=== PATIENT | male | born 1950 | race Caucasian/White ===

== ENCOUNTER 2018-08-29 03:47 | Emergency (ER) | payer MEDICARE ==
[~2018-08-29] VITALS: Ht 172.7 cm; Wt 85.3 kg
[2018-08-29 03:50] VITALS: Ht 172.7 cm; Wt 85.3 kg
[2018-08-29 04:46] LABS: BASOPHIL % 0.5 % (0-2); PLATELET COUNT 161 x10^3mcL (130-400); RED CELL DISTRIBUTION WIDTH 12.8 % (11.5-14.5)
[2018-08-29 04:54] LABS: CALCIUM 9.8 mg/dL (8.5-10.1); CARBON DIOXIDE 26.1 mmol/L (21-32); CHLORIDE SERUM 109 mmol/L (98-107); GFR1 > 60 mL/min; GLUCOSE SERUM 108 mg/dL (74-106); POTASSIUM SERUM 4.2 mmol/L (3.5-5.1); SODIUM SERUM 144 mmol/L (136-145)
[2018-08-29 04:58] LABS: ALBUMIN 3.7 g/dL (3.4-5.0); ALKALINE PHOSPHATASE 82 U/L (46-116); ALT/SGPT 55 U/L (16-63); AST/SGOT 18 U/L (15-37); BILIRUBIN TOTAL 1.34 mg/dL (0.20-1.00); TOTAL PROTEIN, SERUM 6.8 g/dL (6.4-8.2)
[2018-08-29 06:46] VITALS: BP 137/84
== END 2018-08-29 06:46 | disposition home or self-care (01) ==
LOC: ED 03:47
PROVIDERS: Emergency Medicine
DX: R04.0 Epistaxis (principal); I10 Essential (primary) hypertension
CPT/HCPCS: 36415